=== PATIENT | female | born 1955 | race Hispanic/Latino ===

== ENCOUNTER 2018-03-22 10:09 | Outpatient (CLI) | payer OTHER ==
--- NOTE | 2018-03-24 23:15 | Magnetic Resonance Report ---
FINAL REPORT EXAM: MR MRA/MRV PELVIS W CON HISTORY: OTHER CONDITIONS ASSOCIATED WITH FEMALE GENTIAL ORGANS AND MENSTRoutpatient TECHNIQUE: MRI was performed of the pelvis using the following pulse sequences: Axial: 2D Fiesta, gadolinium-enhanced Lava Coronal: Gadolinium-enhanced Lava, dynamic MRA PRIORS: None submitted FINDINGS: There are 2 small nabothian cysts in the cervix. Otherwise, the uterus appears normal measuring 6.2 x 4.1 x 2.7 cm. The ovaries are not well seen. There are no abnormal adnexal masses. There is normal opacification of distal abdominal aorta, adjacent IVC, bilateral iliac vessels and pr oximal common femoral vessels. The bladder appears normal. There are no abnormally dilated loops of bowel. The bones are normal in marrow signal without focal lesions. IMPRESSION: Normal pelvic MRI
== END 2018-03-22 10:10 | disposition home or self-care (01) ==
LOC: MRI 10:09
PROVIDERS: ATTEND Radiology Vascular & Interventional Radiology
DX: N94.89 Other specified conditions associated with female genital organs and menstrual cycle (principal); Z88.5 Allergy status to narcotic agent
CPT/HCPCS: A9577; C8918; 72198